=== PATIENT | female | born 1985 | race Caucasian/White ===

== ENCOUNTER 2017-04-24 12:53 | Emergency (ER) | payer BC, OTHER ==
[2017-04-24 13:17] VITALS: TEMP 97.8
[2017-04-24] MEDS ORDERED: KETOROLAC 30 MG/ML 1 ML VIAL IM STA (15:43)
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
[2017-04-24 16:18] LABS: Appearance,Urine Clear (Clear); Bilirubin,Urine Negative (Negative); Glucose,Urine (UA) Negative (Negative); Ketones,Urine Negative (Negative); Leukocyte Esterase,Urine Negative (Negative); Nitrite,Urine Negative (Negative); PH, Urine 6.5 (5.0-8.0); Protein,Urine Negative (Negative); Specific Gravity,Urine 1.005 (1.001-1.035); UA Billing (MACRO vs. MICRO) CHEM; Urobilinogen,Urine <2.0 mg/dL (<2.0)
[2017-04-24 16:22] LABS: Basophils % (A) 0 %; CH 29.9; CHCM 34.4; Eosinophils # (A) 0.1 k/uL (0-0.7); Eosinophils % (A) 1 %; HCT 41.8 % (34.0-46.0); HDW 2.27; HGB 14.9 gm/dL (11.4-16.0); Luc # (Auto) 0.21; Luc % (Auto) 3; Lymphocytes # (A) 1.5 k/uL (1.0-4.8); Lymphocytes % (A) 19 %; MCH 31.1 pg (25.0-35.0); MCHC 35.7 g/dL (31.0-37.0); Mean Platelet Volume 6.6; Monocytes # (A) 0.3 k/uL (0-1.0); Monocytes % (A) 4 %; Neutrophils # (A) 5.8 k/uL (1.3-7.7); Neutrophils % (A) 73 %; RBC 4.81 m/uL (3.80-5.40); RDW 11.9 % (11.5-15.5); WBC 7.9 k/uL (3.8-10.6); WBC (Perox) 8.11
[2017-04-24 16:38] LABS: Anion Gap 13 mmol/L; Blood Urea Nitrogen 15 mg/dL (7-17); Calcium 10.2 mg/dL (8.4-10.2); Carbon Dioxide 24 mmol/L (22-30); Chloride 105 mmol/L (98-107); Glucose 86 mg/dL (74-99); Non-African American GFR(MDRD) >60 (>60 ml/min/1.73 sqM); Potassium 4.3 mmol/L (3.5-5.1); Sodium 142 mmol/L (137-145)
--- NOTE | 2017-04-24 16:52 | XR ---
EXAMINATION TYPE: XR chest 2V DATE OF EXAM: 04/24/2017 COMPARISON: 11/08/2015 HISTORY: Chest pain TECHNIQUE: Frontal and lateral views of the chest are obtained. FINDINGS: Heart and mediastinum are normal. Lungs are clear. Diaphragm is normal. Bony thorax appear s normal. IMPRESSION: Normal chest. No change.
[2017-04-24 17:27] VITALS: BP 107/56; PULSE 69; RESP 20
[2017-04-25] MEDS ORDERED: KETOROLAC 30 MG/ML 1 ML VIAL IVP SCH
== END 2017-04-24 17:26 | disposition home or self-care (01) ==
LOC: EC 12:53
DX: R07.89 Other chest pain (principal); R00.2 Palpitations
CPT/HCPCS: 99285; 96374; 36415; 85379; 80048; 85025; 81003; 81025; 71020; J1885

== ENCOUNTER 2017-11-05 12:32 | Emergency (ER) | payer BC ==
[2017-11-05 13:20] VITALS: TEMP 98.8
--- NOTE | 2017-11-05 13:51 | XR ---
EXAMINATION TYPE: XR chest 2V DATE OF EXAM: 11/05/2017 COMPARISON: 04/24/2017 HISTORY: Chest pain TECHNIQUE: Frontal and lateral views of the chest are obtained. FINDINGS: There is no focal air space opacity. No evidence for pneumothorax. No pleural effusion. The cardiac silhouette size is within normal limits. The osseous structures are grossly intact. IMPRESSION: 1. No acute cardiopulmonary process.
[2017-11-05 13:53] LABS: Basophils % (A) 0 %; Eosinophils # (A) 0.3 k/uL (0-0.7); Eosinophils % (A) 4 %; HCT 41.3 % (34.0-46.0); HGB 13.5 gm/dL (11.4-16.0); Lymphocytes # (A) 1.7 k/uL (1.0-4.8); Lymphocytes % (A) 25 %; MCH 29.2 pg (25.0-35.0); MCHC 32.7 g/dL (31.0-37.0); MCV 89.3 fL (80.0-100.0); Monocytes # (A) 0.4 k/uL (0-1.0); Monocytes % (A) 5 %; Neutrophils # (A) 4.4 k/uL (1.3-7.7); Neutrophils % (A) 63 %; Platelet Count 404 k/uL (150-450); RBC 4.62 m/uL (3.80-5.40); RDW 13.1 % (11.5-15.5)
[2017-11-05 13:58] LABS: ALT 52 U/L (9-52); AST 21 U/L (14-36); Albumin 4.9 g/dL (3.5-5.0); Alkaline Phosphatase 46 U/L (38-126); Anion Gap 12 mmol/L; Blood Urea Nitrogen 12 mg/dL (7-17); Calcium 10.5 mg/dL (8.4-10.2); Carbon Dioxide 27 mmol/L (22-30); Chloride 104 mmol/L (98-107); Glucose 106 mg/dL (74-99); Potassium 5.1 mmol/L (3.5-5.1); Sodium 143 mmol/L (137-145); Total Bilirubin 0.3 mg/dL (0.2-1.3); Total Protein 8.1 g/dL (6.3-8.2)
[2017-11-05] MEDS ORDERED: RX INFO: IV CONTRAST WAS GIVEN 1 EACH MISC MISCELLANE PRN (14:55)
--- NOTE | 2017-11-05 15:00 | ED ---
General Adult HPI - General Chief complaint: Recheck/Abnormal Lab/Rx Stated complaint: Leg Pain-Post Op Oct 27 Time Seen by Provider: 11/05/17 14:41 Source: patient, RN notes reviewed, old records reviewed Mode of arrival: ambulatory Limitations: no limitations - History of Present Illness Initial comments: 32-year-old female presenting with lower abdominal pain and left groin pain. Patient has remote history of superficial venous thrombosis in her right lower extremity. She is concerned that she has developed a left lower extremity DVT status post tubal ligation reversal on October 27. Patient had this surgery in [place]. She has had persistent lower abdominal pain and pelvic pain since the operation. She is also complaining of a sharp pain in her left proximal thigh. This is worse with ambulation. Denies any pain or swelling below the knee in the left lower extremity. Denies any change in bowels. No dysuria. No fever or chills. - Related Data Home Medications Medication Instructions Recorded Confirmed HYDROcodone/APAP 5-325MG [[place] 1 tab PO Q4HR PRN 11/05/17 11/05/17 5-325] Ibuprofen [Motrin] 800 mg PO Q8H PRN 11/05/17 11/05/17 Prochlorperazine [Compazine] 10 mg PO Q6H PRN 11/05/17 11/05/17 Allergies Allergy/AdvReac Type Severity Reaction Status Date / Time No Known Allergies Allergy Verified 11/05/17 15:19 Review of Systems ROS Statement: Those systems with pertinent positive or pertinent negative responses have been documented in the HPI. ROS Other: All systems not noted in ROS Statement are negative. 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, History of Any Multi-Drug Resistant Organisms: None Reported Past Surgical History: Section, Orthopedic Surgery, Tubal Ligation Additional Past Surgical History / Comment(s): tubal reversal Past Psychological History: No Psychological Hx Reported Smoking Status: Never smoker Past Alcohol Use History: Occasional Past Drug Use History: None Reported General Exam Limitations: no limitations General appearance: alert, in no apparent distress Head exam: Present: atraumatic, normocephalic Eye exam: Present: normal appearance, PERRL ENT exam: Present: normal exam Neck exam: Present: normal inspection. Absent: tenderness, meningismus Respiratory exam: Present: normal lung sounds bilaterally. Absent: respiratory distress, wheezes Cardiovascular Exam: Present: regular rate, normal rhythm GI/Abdominal exam: Present: soft, tenderness (Tender left lower quadrant, left inguinal, incision is clean dry and intact.). Absent: distended Extremities exam: Present: normal inspection, normal capillary refill. Absent: pedal edema Back exam: Present: normal inspection, full ROM. Absent: tenderness Neurological exam: Present: alert, oriented X3 Psychiatric exam: Present: normal affect, normal mood Skin exam: Present: warm, dry, intact. Absent: cyanosis, diaphoretic Course Vital Signs 11/05/17 11/05/17 13:14 15:19 Temperature 98.8 F Pulse Rate 74 93 Respiratory 18 18 Rate Blood Pressure 123/72 128/71 O2 Sat by Pulse 98 98 Oximetry Medical Decision Making - Medical Decision Making 32-year-old status post tubal ligation reversal approximately 9 days ago. Presenting with lower abdominal pain and left thigh pain. Concern for DVT. D- dimer is negative, ultrasound negative for DVT and possible pain throughout the left lower extremity. Chest x-ray shows no acute findings per CT is obtained for lower abdominal tenderness, this does show some endometrial thickening, patient is currently on her. Otherwise negative, no abscess no fluid collection. White blood cell count 7.0, hemoglobin stable at 13.5. Patient's pain likely secondary to normal postoperative pain - Lab Data Result diagrams: 11/05/17 13:24 11/05/17 13:24 Lab Results 11/05/17 11/05/17 11/05/17 Range/Units 13:24 13:24 13:24 WBC 7.0 (3.8-10.6) k/uL RBC 4.62 (3.80-5.40) m/uL Hgb 13.5 (11.4-16.0) gm/dL Hct 41.3 (34.0-46.0) % MCV 89.3 (80.0-100.0) fL MCH 29.2 (25.0-35.0) pg MCHC 32.7 (31.0-37.0) g/dL RDW 13.1 (11.5-15.5) % Plt Count 404 (150-450) k/uL Neutrophils % 63 % Lymphocytes % 25 % Monocytes % 5 % Eosinophils % 4 % Basophils % 0 % Neutrophils # 4.4 (1.3-7.7) k/uL Lymphocytes # 1.7 (1.0-4.8) k/uL Monocytes # 0.4 (0-1.0) k/uL Eosinophils # 0.3 (0-0.7) k/uL Basophils # 0.0 (0-0.2) k/uL D-Dimer 0.30 (<0.60) mg/L FEU Sodium 143 (137-145) mmol/L Potassium 5.1 (3.5-5.1) mmol/L Chloride 104 (98-107) mmol/L Carbon Dioxide 27 (22-30) mmol/L Anion Gap 12 mmol/L BUN 12 (7-17) mg/dL Creatinine 0.69 (0.52-1.04) mg/dL Est GFR (MDRD) Af Amer >60 (>60 ml/min/1.73 sqM) Est GFR (MDRD) Non-Af >60 (>60 ml/min/1.73 sqM) Glucose 106 H (74-99) mg/dL Calcium 10.5 H (8.4-10.2) mg/dL Total Bilirubin 0.3 (0.2-1.3) mg/dL AST 21 (14-36) U/L ALT 52 (9-52) U/L Alkaline Phosphatase 46 (38-126) U/L Total Protein 8.1 (6.3-8.2) g/dL Albumin 4.9 (3.5-5.0) g/dL Urine Color Urine Appearance (Clear) Urine pH (5.0-8.0) Ur Specific [place] (1.001-1.035) Urine Protein (Negative) Urine Glucose (UA) (Negative) Urine Ketones (Negative) Urine Blood (Negative) Urine Nitrite (Negative) Urine Bilirubin (Negative) Urine Urobilinogen (<2.0) mg/dL Ur Leukocyte Esterase (Negative) Urine HCG, Qual (Not Detectd) 11/05/17 11/05/17 Range/Units 15:00 15:00 WBC (3.8-10.6) k/uL RBC (3.80-5.40) m/uL Hgb (11.4-16.0) gm/dL Hct (34.0-46.0) % MCV (80.0-100.0) fL MCH (25.0-35.0) pg MCHC (31.0-37.0) g/dL RDW (11.5-15.5) % Plt Count (150-450) k/uL Neutrophils % % Lymphocytes % % Monocytes % % Eosinophils % % Basophils % % Neutrophils # (1.3-7.7) k/uL Lymphocytes # (1.0-4.8) k/uL Monocytes # (0-1.0) k/uL Eosinophils # (0-0.7) k/uL Basophils # (0-0.2) k/uL D-Dimer (<0.60) mg/L FEU Sodium (137-145) mmol/L Potassium (3.5-5.1) mmol/L Chloride (98-107) mmol/L Carbon Dioxide (22-30) mmol/L Anion Gap mmol/L BUN (7-17) mg/dL Creatinine (0.52-1.04) mg/dL Est GFR (MDRD) Af Amer (>60 ml/min/1.73 sqM) Est GFR (MDRD) Non-Af (>60 ml/min/1.73 sqM) Glucose (74-99) mg/dL Calcium (8.4-10.2) mg/dL Total Bilirubin (0.2-1.3) mg/dL AST (14-36) U/L ALT (9-52) U/L Alkaline Phosphatase (38-126) U/L Total Protein (6.3-8.2) g/dL Albumin (3.5-5.0) g/dL Urine Color Light Yellow Urine Appearance Clear (Clear) Urine pH 6.5 (5.0-8.0) Ur Specific [place] 1.006 (1.001-1.035) Urine Protein Negative (Negative) Urine Glucose (UA) Negative (Negative) Urine Ketones Negative (Negative) Urine Blood Negative (Negative) Urine Nitrite Negative (Negative) Urine Bilirubin Negative (Negative) Urine Urobilinogen <2.0 (<2.0) mg/dL Ur Leukocyte Esterase Negative (Negative) Urine HCG, Qual Not Detected (Not Detectd) Disposition Clinical Impression: Post-operative pain Disposition: HOME SELF-CARE Condition: Good Instructions: Abdominal Pain (ED) Referrals: Joshua Gutierrez MD [Primary Care Provider] - 1-2 days Estefania Flood MD [STAFF PHYSICIAN] - 1-2 days Time of Disposition: 16:58
[2017-11-05 15:53] LABS: Appearance,Urine Clear (Clear); Bilirubin,Urine Negative (Negative); Blood,Urine Negative (Negative); Color,Urine Light Yellow; Glucose,Urine (UA) Negative (Negative); Ketones,Urine Negative (Negative); Leukocyte Esterase,Urine Negative (Negative); Nitrite,Urine Negative (Negative); PH, Urine 6.5 (5.0-8.0); Protein,Urine Negative (Negative); Specific Gravity,Urine 1.006 (1.001-1.035); Urobilinogen,Urine <2.0 mg/dL (<2.0)
--- NOTE | 2017-11-05 16:13 | CT ---
EXAMINATION TYPE: CT abdomen pelvis w con DATE OF EXAM: 11/05/2017 COMPARISON: NONE HISTORY: Left lower quadrant ache that travels down left leg. Tubal reversal 1 week ago. History of s uperficial blood clots after tubal. CT DLP: 351.30 mGycm CONTRAST: CT scan of the abdomen and pelvis is performed without Oral Contrast and with IV Contrast, patient in jected with 100 mL of Omnipaque 300. FINDINGS: LUNG BASES-: No visible nodule. No infiltrate. LIVER/GB: No calcified gallstones. No space occupying hepatic lesion. Biliary tree is of normal ca liber. PANCREAS: No inflammation. No distinct mass. SPLEEN: No splenic enlargement. No lesion seen. ADRENALS: No nodule. No thickening. KIDNEYS/BLADDER: No hydronephrosis. No nephrolithiasis. No disctinct renal mass. Urinary bladder g rossly unremarkable. BOWEL: Normal appendix. Normal bowel caliber. No inflammation. GENITAL ORGANS: Moderate endometrial thickening measuring 3.4 cm. No ovarian or adnexal mass. No sherif dence for free fluid. LYMPH NODES: No greater than 1cm abdominal or pelvic lymph nodes are appreciated. AORTA: No significant abnormality. OSSEOUS STRUCTURES: No significant abnormality is seen. OTHER: No significant additional abnormality is seen. IMPRESSION: 1. Endometrial thickening. Otherwise unremarkable study.
--- NOTE | 2017-11-05 16:33 | US ---
EXAMINATION TYPE: US venous doppler duplex LE LT DATE OF EXAM: 11/05/2017 4:19 PM COMPARISON: NONE CLINICAL HISTORY: Pain. SIDE PERFORMED: Left TECHNIQUE: The lower extremity deep venous system is examined utilizing real time linear array sonog sapna with graded compression, doppler sonography and color-flow sonography. VESSELS IMAGED: External Iliac Vein (EIV) Common Femoral Vein Deep Femoral Vein Greater Saphenous Vein * Femoral Vein Popliteal Vein Small Saphenous Vein * Proximal Calf Veins (* superficial vessels) Grayscale, color doppler, spectral doppler imaging performed of the deep veins of the lower extremity . There is normal flow, compressibility, vascular waveforms. Left Leg: Negative for DVT IMPRESSION: No evidence for DVT.
[2017-11-05 17:17] VITALS: BP 127/71; PULSE 80; RESP 17
== END 2017-11-05 17:20 | disposition home or self-care (01) ==
LOC: EC 12:32
DX: G89.18 Other acute postprocedural pain (principal); M79.652 Pain in left thigh; R10.32 Left lower quadrant pain; R10.2 Pelvic and perineal pain; Z86.711 Personal history of pulmonary embolism; Z98.51 Tubal ligation status
CPT/HCPCS: 36415; 85379; 80053; 85025; 81003; 81025; 71046; 93971; 74177; 99284; Q9967

== ENCOUNTER → 2018-06-30 | Outpatient (CLI) | payer BC ==
--- NOTE | 2018-06-30 13:59 | US ---
EXAMINATION TYPE: US transvaginal DATE OF EXAM: 06/30/2018 COMPARISON: NONE CLINICAL HISTORY: 33-year-old female R10.2 Pel pain,R11.0 Nausea,N92.6 Irreg menstruation. Pelvic crate icer mping and pain. 06/30. Tubal ligation 09/29. Tubal reversal 11/05. TECHNIQUE: Transvaginal (TV). Date of LMP: 06/25/18 FINDINGS: EXAM MEASUREMENTS: Uterus: 9.4 x 3.7 x 5.6 cm Endometrial Stripe: 0.8 cm Right Ovary: 3.3 x 1.3 x 1.3 cm Left Ovary: 2.2 x 1.2 x 1.8 cm Both ovaries are normal size. 1. Uterus: Anteverted. 6 mm cervical nabothian cyst 2. Endometrium: appears wnl as visualized 3. Right Ovary: follicles noted 4. Left Ovary: follicles noted 5. Bilateral Adnexa: wnl 6. Posterior cul-de-sac: wnl IMPRESSION: Unremarkable sonographic examination of the pelvis.
== END | disposition home or self-care (01) ==
LOC: RADUSWWP 13:04
PROVIDERS: ATTEND Internal Medicine
DX: N92.6 Irregular menstruation, unspecified (principal); R10.2 Pelvic and perineal pain; R11.0 Nausea
CPT/HCPCS: 76830

== ENCOUNTER → 2018-09-29 | Outpatient (CLI) | payer BC ==
--- NOTE | 2018-09-29 15:55 | FL ---
EXAMINATION TYPE: FL hysterosalpingography DATE OF EXAM: 09/29/2018 COMPARISON: None HISTORY: Reversal tubal ligation TECHNIQUE: The procedure was explained to the patient, the risks complications and benefits. All ques tions were answered. Written and verbal informed consent was obtained. Patient was placed on the fluoroscopy table in the supine view. Speculum was placed. The cervix was l ocalized. Vaginal vault was cleansed with Betadine. Catheter was placed through the cervical os and the balloon inflated. Under fluoroscopic observation 10 mL Omnipaque 180 was administered in retrograde fashion. Overhead prone view was then obtained. Jannette garcia instructions were discussed with the patient. Patient understood the instructions and was rel eased in stable condition having tolerated procedure well. FINDINGS: Uterus appears unremarkable. Fallopian tubes are thin and delicate. There is prompt fill and spill on the left. Some mild additional contrast free spill is noted on the right with visualization of a nor mal-appearing fallopian tube on the right. IMPRESSION: 1. Patent bilateral fallopian tubes with free spill into the pelvis.
== END | disposition home or self-care (01) ==
LOC: RADFLWHC 13:19
PROVIDERS: ATTEND Obstetrics & Gynecology Reproductive Endocrinology
DX: N70.11 Chronic salpingitis (principal)
CPT/HCPCS: 58340; 74740; Q9967

== ENCOUNTER 2018-11-24 16:18 | Emergency (ER) | payer BC ==
[2018-11-24 16:36] VITALS: RESP 18
[2018-11-24] MEDS ORDERED: SODIUM CHLORIDE 0.9% 1,000 ML IV ONE ×2 (17:12)
[2018-11-24 18:09] LABS: Appearance,Urine Clear (Clear); Basophils % (A) 0 %; Bilirubin,Urine Negative (Negative); Blood,Urine Negative (Negative); Color,Urine Light Yellow; Eosinophils # (A) 0.1 k/uL (0-0.7); Eosinophils % (A) 1 %; Glucose,Urine (UA) Negative (Negative); HCT 42.1 % (34.0-46.0); HGB 14.1 gm/dL (11.4-16.0); Ketones,Urine Negative (Negative); Leukocyte Esterase,Urine Negative (Negative); Lymphocytes # (A) 1.2 k/uL (1.0-4.8); Lymphocytes % (A) 8 %; MCH 29.5 pg (25.0-35.0); MCHC 33.6 g/dL (31.0-37.0); MCV 87.7 fL (80.0-100.0); Mean Platelet Volume 6.6; Monocytes # (A) 0.8 k/uL (0-1.0); Monocytes % (A) 5 %; Neutrophils % (A) 84 %; Nitrite,Urine Negative (Negative); PH, Urine 6.5 (5.0-8.0); Platelet Count 259 k/uL (150-450); Protein,Urine Negative (Negative); RBC 4.79 m/uL (3.80-5.40); RDW 12.1 % (11.5-15.5); Specific Gravity,Urine 1.004 (1.001-1.035); Urobilinogen,Urine <2.0 mg/dL (<2.0); WBC 14.3 k/uL (3.8-10.6)
[2018-11-24 18:20] LABS: ALT 26 U/L (9-52); AST 27 U/L (14-36); Albumin 4.9 g/dL (3.5-5.0); Alkaline Phosphatase 59 U/L (38-126); Anion Gap 11 mmol/L; Blood Urea Nitrogen 6 mg/dL (7-17); Calcium 10.1 mg/dL (8.4-10.2); Carbon Dioxide 27 mmol/L (22-30); Chloride 102 mmol/L (98-107); Glucose 99 mg/dL (74-99); Potassium 4.1 mmol/L (3.5-5.1); Sodium 140 mmol/L (137-145); Total Bilirubin 0.4 mg/dL (0.2-1.3); Total Protein 8.4 g/dL (6.3-8.2)
[2018-11-24 18:26] LABS: INR 0.9 (<1.2); Partial Thromboplastin Time 27.3 sec (22.0-30.0); Prothrombin Time 9.8 sec (9.0-12.0)
[2018-11-24 18:36] LABS: HCG,Quantitative Serum <2.4 mIU/mL
[2018-11-24] MEDS ORDERED: ACETAMINOPHEN TAB 500 MG TAB PO STA (18:38)
--- NOTE | 2018-11-24 19:19 | ED ---
Abdominal Pain HPI - General Chief Complaint: Abdominal Pain Stated Complaint: Lower abd pain Time Seen by Provider: 11/24/18 16:55 Source: patient, RN notes reviewed, old records reviewed Mode of arrival: ambulatory Limitations: no limitations - History of Present Illness Initial Comments: Patient is currently receiving treatment for IVF. Patient states that she started to take fertility injections starting last Thursday 3 times a day. She states that today she started to have some left-sided lower abdominal pain and went to her IVF clinic today. She had an ultrasound at that time which she was told she has 15 available eggs. She does have a grade triple scheduled for later on this week. Patient states that the evaluate her for this pain and did not have a significant answer. She called them for repeat questioning her pain today and they told her to come to the emergency department for reevaluation. Patient's infertility doctor is Dr. Ar evans. Patient states she's had normal bowel movements. - Related Data Home Medications Medication Instructions Recorded Confirmed Cetrotide 0.25mg Kit 0.25 unit IM DAILY 11/24/18 11/24/18 Gonal-F Rff 300 Unit Rediject 225 unit IM DAILY 11/24/18 11/24/18 Menopur 75 Unit Vial 150 unit IM DAILY 11/24/18 11/24/18 Drz-Mdqn-Dldfi Acid 1 cap PO DAILY 11/24/18 11/24/18 [-U Capsule (formulary)] Allergies Allergy/AdvReac Type Severity Reaction Status Date / Time No Known Allergies Allergy Verified 11/24/18 16:47 Review of Systems ROS Statement: Those systems with pertinent positive or pertinent negative responses have been documented in the HPI. ROS Other: All systems not noted in ROS Statement are negative. 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 Alert and oriented. Limitations: no limitations General appearance: alert, in no apparent distress Head exam: Present: atraumatic, normocephalic, normal inspection Eye exam: Present: normal appearance, PERRL, EOMI. Absent: scleral icterus, conjunctival injection, periorbital swelling ENT exam: Present: normal exam, mucous membranes moist Neck exam: Present: normal inspection. Absent: tenderness, meningismus, lymphadenopathy Respiratory exam: Present: normal lung sounds bilaterally. Absent: respiratory distress, wheezes, rales, rhonchi, stridor Cardiovascular Exam: Present: regular rate GI/Abdominal exam: Present: soft, tenderness (Left lower quadrant tenderness), normal bowel sounds. Absent: distended, guarding, rebound, rigid External exam: Present: normal external exam Speculum exam: Present: normal speculum exam By manual exam: Present: adnexal tenderness (left). Absent: normal by manual exam Extremities exam: Present: normal inspection, full ROM, normal capillary refill. Absent: tenderness, pedal edema, joint swelling, calf tenderness Back exam: Present: normal inspection Neurological exam: Present: alert, oriented X3, CN II-XII intact Psychiatric exam: Present: normal affect, normal mood Skin exam: Present: warm, dry, intact, normal color. Absent: rash Course Vital Signs 11/24/18 11/24/18 11/24/18 16:32 18:47 20:41 Temperature 98.4 F 98.2 F Pulse Rate 111 H 87 82 Respiratory 18 18 18 Rate Blood Pressure 124/83 108/59 114/64 O2 Sat by Pulse 98 98 97 Oximetry Medical Decision Making - Medical Decision Making Patient is a 33 year old female undergoing IVF treatment, with 2 days of left pelvic pain. LAbs are unremarkable. UA is negative. Patient US shows no ovarian torsion, but she has multiple follicles. Discussed monitoring for weight gain, to access for Hyperovarian stimulation syndrome. She was advised we could do CT scan, but patient wants to avoid radiation. PAtient sees her IVF specialist for egg retreival on Thursday. Discussed Strict return parameters and that pain islikely from ovarian stimulation. - Lab Data Result diagrams: 11/24/18 17:38 11/24/18 17:38 Lab Results 11/24/18 11/24/18 11/24/18 Range/Units 17:38 17:38 17:38 WBC 14.3 H (3.8-10.6) k/uL RBC 4.79 (3.80-5.40) m/uL Hgb 14.1 (11.4-16.0) gm/dL Hct 42.1 (34.0-46.0) % MCV 87.7 (80.0-100.0) fL MCH 29.5 (25.0-35.0) pg MCHC 33.6 (31.0-37.0) g/dL RDW 12.1 (11.5-15.5) % Plt Count 259 (150-450) k/uL Neutrophils % 84 % Lymphocytes % 8 % Monocytes % 5 % Eosinophils % 1 % Basophils % 0 % Neutrophils # 12.0 H (1.3-7.7) k/uL Lymphocytes # 1.2 (1.0-4.8) k/uL Monocytes # 0.8 (0-1.0) k/uL Eosinophils # 0.1 (0-0.7) k/uL Basophils # 0.0 (0-0.2) k/uL PT 9.8 (9.0-12.0) sec INR 0.9 (<1.2) APTT 27.3 (22.0-30.0) sec Sodium 140 (137-145) mmol/L Potassium 4.1 (3.5-5.1) mmol/L Chloride 102 (98-107) mmol/L Carbon Dioxide 27 (22-30) mmol/L Anion Gap 11 mmol/L BUN 6 L (7-17) mg/dL Creatinine 0.62 (0.52-1.04) mg/dL Est GFR (CKD-EPI)AfAm >90 (>60 ml/min/1.73 sqM) Est GFR (CKD-EPI)NonAf >90 (>60 ml/min/1.73 sqM) Glucose 99 (74-99) mg/dL Calcium 10.1 (8.4-10.2) mg/dL Total Bilirubin 0.4 (0.2-1.3) mg/dL AST 27 (14-36) U/L ALT 26 (9-52) U/L Alkaline Phosphatase 59 (38-126) U/L Total Protein 8.4 H (6.3-8.2) g/dL Albumin 4.9 (3.5-5.0) g/dL HCG, Quant <2.4 mIU/mL Urine Color Urine Appearance (Clear) Urine pH (5.0-8.0) Ur Specific [place] (1.001-1.035) Urine Protein (Negative) Urine Glucose (UA) (Negative) Urine Ketones (Negative) Urine Blood (Negative) Urine Nitrite (Negative) Urine Bilirubin (Negative) Urine Urobilinogen (<2.0) mg/dL Ur Leukocyte Esterase (Negative) Influenza Type A RNA (Not Detectd) Influenza Type B (PCR) (Not Detectd) 11/24/18 11/24/18 Range/Units 17:38 17:48 WBC (3.8-10.6) k/uL RBC (3.80-5.40) m/uL Hgb (11.4-16.0) gm/dL Hct (34.0-46.0) % MCV (80.0-100.0) fL MCH (25.0-35.0) pg MCHC (31.0-37.0) g/dL RDW (11.5-15.5) % Plt Count (150-450) k/uL Neutrophils % % Lymphocytes % % Monocytes % % Eosinophils % % Basophils % % Neutrophils # (1.3-7.7) k/uL Lymphocytes # (1.0-4.8) k/uL Monocytes # (0-1.0) k/uL Eosinophils # (0-0.7) k/uL Basophils # (0-0.2) k/uL PT (9.0-12.0) sec INR (<1.2) APTT (22.0-30.0) sec Sodium (137-145) mmol/L Potassium (3.5-5.1) mmol/L Chloride (98-107) mmol/L Carbon Dioxide (22-30) mmol/L Anion Gap mmol/L BUN (7-17) mg/dL Creatinine (0.52-1.04) mg/dL Est GFR (CKD-EPI)AfAm (>60 ml/min/1.73 sqM) Est GFR (CKD-EPI)NonAf (>60 ml/min/1.73 sqM) Glucose (74-99) mg/dL Calcium (8.4-10.2) mg/dL Total Bilirubin (0.2-1.3) mg/dL AST (14-36) U/L ALT (9-52) U/L Alkaline Phosphatase (38-126) U/L Total Protein (6.3-8.2) g/dL Albumin (3.5-5.0) g/dL HCG, Quant mIU/mL Urine Color Light Yellow Urine Appearance Clear (Clear) Urine pH 6.5 (5.0-8.0) Ur Specific [place] 1.004 (1.001-1.035) Urine Protein Negative (Negative) Urine Glucose (UA) Negative (Negative) Urine Ketones Negative (Negative) Urine Blood Negative (Negative) Urine Nitrite Negative (Negative) Urine Bilirubin Negative (Negative) Urine Urobilinogen <2.0 (<2.0) mg/dL Ur Leukocyte Esterase Negative (Negative) Influenza Type A RNA Not Detected (Not Detectd) Influenza Type B (PCR) Not Detected (Not Detectd) Disposition Clinical Impression: Pelvic pain, Ovarian follicular cyst Disposition: HOME SELF-CARE Condition: Good Instructions (If sedation given, give patient instructions): Ovarian Cyst (ED) Additional Instructions: Patient advised to follow-up promptly with urinary infertility specialist. Patient should return to emergency department if any alarming signs or symptoms occur. Is patient prescribed a controlled substance at d/c from ED?: No Referrals: Greg Schwartz MD [Primary Care Provider] - 1-2 days Time of Disposition: 20:32
--- NOTE | 2018-11-24 20:19 | US ---
EXAMINATION TYPE: US transvaginal DATE OF EXAM: 11/24/2018 COMPARISON: NONE CLINICAL HISTORY: Pain. Pain patient doing IVF. TECHNIQUE: Transvaginal (TV). EXAM MEASUREMENTS: Uterus: 9.8 x 5.4 x 6.4 cm Endometrial Stripe: 1.4 cm Right Ovary: 5.2 x 3.2 x 3.2 cm Left Ovary: 3.4 x 2.4 x 2.7 cm 1. Uterus: Anteverted wnl 2. Endometrium: wnl 3. Right Ovary: Multiple follicles seen. 4. Left Ovary: Multiple follicles seen. Spectral, color and waveform doppler imaging shows good arterial and venous flow within the ovaries ; there is no evidence for ovarian torsion. 5. Bilateral Adnexa: wnl 6. Posterior cul-de-sac: wnl IMPRESSION: Normal uterus and endometrium. Numerous follicular cysts on both ovaries. No evidence of ovarian torsion.
[2018-11-24 20:42] VITALS: BP 114/64; PULSE 82; TEMP 98.2
== END 2018-11-24 20:43 | disposition home or self-care (01) ==
LOC: EC 16:18
DX: N83.02 Follicular cyst of left ovary (principal); N83.01 Follicular cyst of right ovary; Z79.890 Hormone replacement therapy; Z98.890 Other specified postprocedural states
CPT/HCPCS: 36415; 76830; 80053; 81003; 84702; 85025; 85610; 85730; 87491; 87502; 87591; 93975; 96360; 96361; 99284

== ENCOUNTER 2019-08-15 16:56 | Outpatient (CLI) | payer BC ==
[2019-08-15 18:03] LABS: Appearance,Urine Clear (Clear); Bilirubin,Urine Negative (Negative); Blood,Urine Negative (Negative); Color,Urine Light Yellow; Glucose,Urine (UA) Negative (Negative); Ketones,Urine Negative (Negative); Leukocyte Esterase,Urine Negative (Negative); Nitrite,Urine Negative (Negative); PH, Urine 6.5 (5.0-8.0); Protein,Urine Negative (Negative); Specific Gravity,Urine 1.008 (1.001-1.035); Urobilinogen,Urine <2.0 mg/dL (<2.0)
[2019-08-15 18:56] VITALS: BP 136/77; PULSE 89; RESP 18; TEMP 98.7
--- NOTE | 2019-08-19 03:50 | P.MSEPDOC ---
Presenting Problems - Arrival Data Date of Arrival on Unit: 08/15/19 Time of Arrival on Unit: 16:55 Mode of Transport: Wheelchair - Complaint OB-Reason for Admission/Chief Complaint: Other Comment: cramping, pressure, itching, nausea, swelling. Medical History - Information : 4 Para: 3 Term: 2 : 1 Abortions: Spontaneous or Elective: 0 Number of Living Children: 3 - Gestational Age Gestational Age by SHEILA (wks/days): 32 Weeks and 3 Days - History Complications: Prior Review of Systems - Review of Systems Constitutional: No problems Breast: No problems ENT: No problems Cardiovascular: No problems Respiratory: No problems Gastrointestinal: No problems Genitourinary: No problems Musculoskeletal: No problems Neurological: No problems Skin: Itching Vital Signs - Temperature Temperature: 98.7 F Temperature Source: Oral - Pulse Right Sitting Brachial Pulse Rate: 89 Pulse Assessment Method: Automatic Cuff - Respirations Respiratory Rate: 18 Oxygen Delivery Method: Room Air O2 Sat by Pulse Oximetry: 98 - Blood Pressure Right Arm Sitting Blood Pressure: 136/77 Blood Pressure Mean: 96 Blood Pressure Source: Automatic Cuff Medical Screen Scoring (Pre) - Cervical Exam Dilation: 0 cm = 0 - Uterine Contractions Frequency: > 5 minutes apart = 1 Duration: > 40 seconds = 2 Intensity: N/A - Maternal Vital Signs Maternal Temperature: N/A Maternal Blood Pressure: N/A Signs of Preeclampsia: N/A Maternal Respirations: N/A - Maternal Trauma Maternal Trauma: N/A - Assessment - Baby A Baseline FHR: 135 Heart Rate - NICHD Category: Category I (Normal) = 0 NST: Reactive Position: N/A Station: N/A - Total Score - Baby A Total Score - Baby A: 3 - Total Score - Baby B Total Score - Baby B: 3 - Total Score - Baby C Total Score - Baby C: 3 - Level of Risk - Baby A Level of Risk - Baby A: Low (0-5) - Level of Risk - Baby B Level of Risk - Baby B: Low (0-5) - Level of Risk - Baby C Level of Risk - Baby C: Low (0-5) - Pain Assessment Pain Location and Character: Abdomen Pain Scale Used: Numeric (1 - 10) Pain Intensity: 4 Pain Management Goal: 3 Pain Description: Cramping Pain Radiation Location: none Pain Frequency: Frequent Pain Duration: 3 Pain Duration Units: Days Pain Behavior: None Exhibited, Vocalization Effects of Pain: none Pain Aggravating Factors: Activity Physician Notification (Pre) - Physician Notified Physician Notified Date: 08/15/19 Physician Notified Time: 18:45 Physician/Practitioner Notifed:: Dr Flood Spoke With: Dr Flood New Order Received: Yes - Notification Comment Comment: UA neg. Cervix closed. BP within normal. Irreg. contractions. Planning fasting labs tomorrow morning in the office for swelling and itching with follow up appt in the office on Thursday with Dr Flood. Disposition - Disposition OB Disposition: Physician follow up in office, Discharge to home Discharge Date: 08/15/19 Discharge Time: 18:50 I agree with the RN Medical Screening Exam: Yes Risk & Benefit of care provided described in d/c instruction: Yes Diagnosis: RELATED CONDITIONS, UNSPECIFIED, THIRD TRIMESTER
== END 2019-08-15 18:57 | disposition home or self-care (01) ==
LOC: FBPOP 16:56
PROVIDERS: ATTEND Obstetrics & Gynecology
DX: O26.93 Pregnancy related conditions, unspecified, third trimester (principal); Z3A.32 32 weeks gestation of pregnancy
CPT/HCPCS: 59025; 81003; 99213

== ENCOUNTER 2019-08-23 09:14 | Observation (INO) | payer BC ==
[2019-08-23 10:10] LABS: Appearance,Urine Cloudy (Clear); Bacteria,Urine Occasional /hpf; Bilirubin,Urine Negative (Negative); Blood,Urine Negative (Negative); Color,Urine Light Yellow; Glucose,Urine (UA) Negative (Negative); Ketones,Urine Negative (Negative); Leukocyte Esterase,Urine Large (Negative); Nitrite,Urine Negative (Negative); PH, Urine 6.5 (5.0-8.0); Protein,Urine Negative (Negative); RBC,Urine 4 /hpf (0-5); Specific Gravity,Urine 1.006 (1.001-1.035); Squamous Epithelial Cell,Urine 2 /hpf (0-4); Urobilinogen,Urine <2.0 mg/dL (<2.0); WBC,Urine 10 /hpf (0-5)
[2019-08-23 10:39] LABS: ALT 32 U/L (9-52); AST 31 U/L (14-36); African American GFR (CKD) >90 (>60 ml/min/1.73 sqM); Blood Urea Nitrogen 9 mg/dL (7-17); LDH 452 U/L (313-618); Non-African American GFR(CKD) >90 (>60 ml/min/1.73 sqM); Uric Acid 8.1 mg/dL (3.7-7.4)
[2019-08-23 10:52] LABS: HCT 34.3 % (34.0-46.0); HGB 11.8 gm/dL (11.4-16.0); MCH 29.7 pg (25.0-35.0); MCHC 34.4 g/dL (31.0-37.0); MCV 86.2 fL (80.0-100.0); Mean Platelet Volume 6.7; Platelet Count 255 k/uL (150-450); RBC 3.98 m/uL (3.80-5.40); RDW 12.7 % (11.5-15.5); WBC 9.8 k/uL (3.8-10.6)
[2019-08-23 11:33] LABS: Band Neutrophils % 1 %; Eosinophils # (M) 0.39 k/uL (0-0.7); Lymphocytes # (M) 1.18 k/uL (1.0-4.8); Monocytes # (M) 0.49 k/uL (0-1.0); Neutrophils % (M) 78 %; Nucleated Red Blood Cells 0 /100 WBC (0-0); Total Cells Counted 100
--- NOTE | 2019-08-23 12:27 | US ---
EXAMINATION TYPE: US OB >= 14 wk fetus DATE OF EXAM: 08/23/2019 COMPARISON: None CLINICAL HISTORY: osvaldo, and efw, High blood pressure with ; TECHNIQUE: Transabdominal (TA) GESTATIONAL AGE / DATING Physician Established: (33 weeks/4 days) EDC: 10/07/2019 Dates by LMP: (33 weeks/4 days) EDC: 10/07/2019 Dates by Current Scan: (33 weeks/3 days) EDC: 10/08/2019 Beta HCG (if available): NA SURVEY IUP: Single PLACENTA: Fundal with portions posteriorly and anteriorly PREVIA: No Previa OSVALDO: 15.0 cm Normal CERVICAL LENGTH (transabdominal: norm > 3.0cm): 3.9 cm Post Void BIOMETRY PRESENTATION: Vertex LIE: Oblique BPD: 8.4 cm 34 weeks / 0 days HC: 30.7 cm 34 weeks / 1 days AC: 29.3 cm 33 weeks / 2 days FL: 6.5 cm 33 weeks / 5 days ESTIMATED WEIGHT IN GRAMS: 2220.0 grams ESTIMATED WEIGHT IN LBS/OZ: 4 lbs. 14 oz. WEIGHT PERCENTAGE BASED ON ESTABLISHED DATES: 41.2% HC/AC: 1.05 Normal FL/AC: 21.32 Normal HEART RATE: 154 bpm RHYTHM: Normal Single, live IUP, 33 weeks/3 days, EDC: 10/08/2019, [id number]; OSVALDO and EFW are wnl. Tech findings reported to patient's RN, Radha Paris. JJ IMPRESSION: Limited survey. Single viable intrauterine corresponding to an ultrasound age of 33 w eeks 3 days with estimated date of delivery 10/08/2019 by today's exam.
[2019-08-23] MEDS: BETAMET ACET-BETAMETH SOD PHOS 6 MG/ML VIAL IM SCH (13:01)
[2019-08-23] MEDS: URSODIOL 300 MG CAP PO SCH ×2 (13:01→18:48)
[2019-08-23 13:15] VITALS: BMI 29.7
--- NOTE | 2019-08-23 15:38 | P.HPOB ---
History of Present Illness H&P Date: 08/23/19 Chief Complaint: Blood pressure 148/90 at home This is a 34-year-old female 4 para 3003 EDC 10/07/2019 at 33-4/7 weeks' gestation. Patient did not fill well last night at approximately 11:30 PM. She took her blood pressure on a wrist monitor and noted to be slightly high. She repeated her blood pressure at her parents house with a stable and on her, and noted to be 148/98. This morning she called the office for instructions, and was told to present to labor and delivery. She states she had floaters in her vision last night, but denies any visual blurring. No epigastric pain. Fetus is been active throughout the . She does complain of peripheral itching, fasting bile acids just returned the level of 13. history is significant for advanced maternal age, and IVF . Blood type is O-, broke and received. An area and chlamydia cultures negative. One-hour Glucola 188, three-hour GTT within normal limits. Thyroid function s tudies within normal limits. HIV testing, urine culture, hepatitis B surface antigen, VDRL testing, Pap smear all negative. Rubella status immune. Social history patient is recently , and re-. She is a nonsmoker. She denies alcohol or drug use. Family history significant for heart disease, stroke, diabetes, gout. ALLERGIES none known. Obstetric history significant for normal spontaneous vaginal delivery 2006, vaginal delivery 2009, section at [facility] in 2011 at 31 weeks gestation, this was secondary to PPE are [place]. Past medical history is significant for asthma, on no medications. Past surgical history tubal ligation performed 2011, reversal 2017. Current medications Synthroid 25 MCG's once daily, vitamin daily. On exam this is a pleasant white female who is 5 foot 0 inches, 152 pounds, initial blood pressure on admission 162/86. She has slight facial bertha on the left, consistent with Lorenzana's palsy sustained several years ago. Chest is clear in all kumar. Abdomen is soft and nontender, is vertex to Prasanna's maneuvers. Extremities reveal no edema. Reflexes are +1. heart rate is consistent with reactive NST. Ultrasound reveals estimated weight 41.2 percentile, vertex presentation, normal amniotic fluid index of 15 cm. Admitting labs include normal liver function studies, slightly elevated uric ac id, bile acid noted slightly elevated at 13, normal CBC. No proteinuria. Impression: 33-4/7 weeks intrauterine , -induced hypertension and cholestasis of recently diagnosed. Advanced maternal age. Plan: Serial blood pressures at this time, most recent 120s over 70s. 24 hour urine collection started. Actigall 300 mg by mouth 3 times a day for cholestasis symptomatology. Betamethasone given, repeat in 12-24 hours. Reevaluation in the morning with further planning to follow. 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, History of Any Multi-Drug Resistant Organisms: None Reported Past Surgical History: Section, Orthopedic Surgery, Tubal Ligation Additional Past Surgical History / Comment(s): tubal reversal Past Anesthesia/Blood Transfusion Reactions: No Reported Reaction Past Psychological History: No Psychological Hx Reported Smoking Status: Never smoker Past Alcohol Use History: None Reported Past Drug Use History: None Reported - Past Family History Mother Family Medical History: No Reported History Medications and Allergies Home Medications Medication Instructions Recorded Confirmed Type Zsb-Pznv-Howzd Acid 1 cap PO DAILY 11/24/18 08/23/19 History [-U Capsule (formulary)] Allergies Allergy/AdvReac Type Severity Reaction Status Date / Time No Known Allergies Allergy Verified 08/23/19 09:40 Exam Vital Signs Temp Pulse Resp BP 08/23/19 13:10 97.5 F L 93 16 162/86 08/23/19 09:32 97.5 F L 93 16 162/86 Intake and Output 08/23/19 08/23/19 08/23/19 06:59 14:59 22:59 Other: Weight 68.946 kg See dictation under HPI please Results Result Diagrams: 08/23/19 09:58 08/23/19 09:58 Abnormal Lab Results - Last 24 Hours (Table) 08/23/19 08/23/19 08/23/19 Range/Units 09:20 09:20 09:58 Uric Acid 8.1 H (3.7-7.4) mg/dL Urine Appearance Cloudy H (Clear) Ur Leukocyte Esterase Large H (Negative) Urine WBC 10 H (0-5) /hpf Urine Bacteria Occasional H (None) /hpf U Random Total Protein 16 H (<12) mg/dL Assessment and Plan Plan: Actigall 300 mg 3 times a day. Betamethasone now, repeat in 12-24 hours. Admit patient for serial blood pressures and monitoring through the evening. Begin 24-hour urine collection. Further assessment and recommendations in the morning. Time with Patient: Greater than 30 (33-4/7 weeks intrauterine , -induced hypertension, mild, cholestasis of )
[2019-08-23] MEDS ORDERED: ACETAMINOPHEN TAB 500 MG TAB PO PRN (16:23)
[2019-08-23] MEDS ORDERED: ZOLPIDEM 10 MG TAB PO PRN (16:24)
[2019-08-23] MEDS ORDERED: ZOLPIDEM 5 MG TAB PO PRN (23:14)
[2019-08-24] MEDS: BETAMET ACET-BETAMETH SOD PHOS 6 MG/ML VIAL IM SCH (07:17)
[2019-08-24] MEDS: URSODIOL 300 MG CAP PO SCH ×3 (07:55→18:00)
--- NOTE | 2019-08-24 07:58 | P.DS ---
Providers Date of admission: 08/23/19 11:03 Expected date of discharge: 08/24/19 Attending physician: Estefania Flood Primary care physician: Stated None Hospital Course: This is a 34-year-old white female 4 para 11/19/2002 EDC 10/07/2019 at 33-5/7 weeks' gestation. Patient presented yesterday with a complaint of elevated blood pressure noted at home, at her parent's house. On admission her blood pressure was 162/86. Patient was admitted for 23 hour monitoring and serial blood pressure checks. She has recently been diagnosed with mild cold Restasis of , fasting bile acids 13, upper limits of normal time. Fetus is been active throughout the . She reported floaters in her vision, but otherwise denies visual changes, right upper quadrant pain, or headache. Please see admitting history and physical for details. Blood pressures have been monitored every 2 hours, and our generally in the 1:30 over 70s to 80s range. This morning patient is feeling well and has no complaints. Reactive NST is noted. Ultrasound was performed and reveals estimated weight in the 40th percentile with normal OSVALDO, vertex presentation. AST, ALTs, platelets all normal. Uric acid slightly elevated. Uterus is soft and nontender, extremities negative for edema, normal reflexes. Betamethasone has been given 2. 24-hour urine collection has been started and will be completed this morning. I will discuss this case with Dr. Perez of maternal- medicine, but anticipate discharge home later this morning. Patient has follow-up appointment scheduled with me tomorrow. She has a sphygomanometer that she is comfortable using, and will bring it to the office with her tomorrow for calibration. She will take her blood pressures at home twice daily and record them. She will call with any headache, visual changes, or right upper quadrant pain, any decreased movement, any blood pressures greater than 150s systolic or 90 diastolic. A prescription for Actigall 300 mg 3 times daily has been called to her local pharmacy. Further recommendations to follow pending consultation with maternal- medicine, consideration for the start of an antihypertensive medication is being given. Patient Condition at Discharge: Good Plan - Discharge Summary New Discharge Prescriptions: No Action Upb-Xxfz-Xmbuh Acid [-U Capsule (formulary)] 1 cap PO DAILY Discharge Medication List Rfy-Goic-Tbhbe Acid [-U Capsule (formulary)] 1 cap PO DAILY 11/24/18 [History] Follow up Appointment(s)/Referral(s): Estefania Flood MD [STAFF PHYSICIAN] - 1-2 Days Discharge Disposition: HOME SELF-CARE
[2019-08-24 09:19] LABS: Basophils # (A) 0.1 k/uL (0-0.2); Basophils % (A) 1 %; Eosinophils % (A) 0 %; HCT 35.1 % (34.0-46.0); HGB 11.9 gm/dL (11.4-16.0); Lymphocytes % (A) 8 %; MCH 29.4 pg (25.0-35.0); MCHC 33.8 g/dL (31.0-37.0); MCV 87.1 fL (80.0-100.0); Mean Platelet Volume 7.4; Monocytes # (A) 0.4 k/uL (0-1.0); Monocytes % (A) 3 %; Neutrophils # (A) 10.5 k/uL (1.3-7.7); Neutrophils % (A) 85 %; Platelet Count 295 k/uL (150-450); RBC 4.03 m/uL (3.80-5.40); WBC 12.3 k/uL (3.8-10.6)
[2019-08-24 09:29] LABS: Uric Acid 7.5 mg/dL (3.7-7.4)
[2019-08-24 11:59] LABS: Total Volume 24 Hour,Urine 2500 mls (800-1800)
[2019-08-24 12:14] LABS: Total Protein 24 Hour,Urine 375 mg/24hr (42.0-225.0)
[2019-08-25 04:26] VITALS: RESP 16; TEMP 97.5
[2019-08-25 05:52] VITALS: PULSE 86
[2019-08-25 05:54] VITALS: BP 159/86
[2019-08-25] MEDS ORDERED: LACTATED RINGERS 1,000 ML IV SCH (07:45)
[2019-08-25] MEDS ORDERED: MAGNESIUM SULFATE GM 6 GM in SODIUM CHLORIDE 0.9% 100 ML IVPB ONE (07:45)
--- NOTE | 2019-08-25 07:54 | P.DS ---
Providers Date of admission: 08/23/19 11:03 Expected date of discharge: 08/25/19 Attending physician: Estefania Flood Primary care physician: Stated None Hospital Course: This is a transfer summary on . This is a 34-year-old white female 4 para 11/19/2002 EDC 10/07/2019 at 34 weeks gestation. Patient presented to labor and delivery 3 days ago with headache and increased blood pressure, blood pressure 162/86 on admission. Labs were drawn, including AST 32, ALTs 31, uric acid 8.1, platelets 255,000. Steroids were given 2. 24 hour urine was instituted, returned with a level of 375 mg protein. Patient was admitted and serial blood pressures were performed every 1-2 hours. Blood pressures stabilized in the 120s to 130s over 70s to 80s range. Symptomatology resolved. Ultrasound was performed, confirming vertex sanchez, 4 lbs. 14 oz. or 2-20 g, 41.2 percentile. Normal OSVALDO was noted of 15 cm. Reactive NST was also noted. On the second hospital day patient looked and felt greatly improved, with blood pressure stabilization. My thought was to discharge the patient home, however I discussed her in detail with Dr. Arturo Perez at [facility], maternal- medicine. His opinion was to continue hospitalization, continue serial blood pressure checks, repeat labs. Therefore discharge was canceled. In addition, patient repeat presented to my office last week with intense itching and fasting bile acids were drawn. They have returned slightly elevated at 13, upper limits of normal 10. Labs were repeated yesterday on 08/24/2019 and actually improved, ALTs 26, AST 26, uric acid down to 7.5. Continued hospitalization was maintained in hopes of continuing the to 35 weeks gestation, when my institution would be capable of accepting the . However, at 5:30 this morning the patient awoke with epigastric pain, had emesis, and blood pressure was noted to be 165/79, repeat 164/84. Decision is made now 2 transfer based on severe preeclampsia criteria. Fetus has been active throughout the . Patient is noted to be lily mildly every 5-7 minutes apart spontaneously. history is significant for blood type O-, broke and received on 03/30/2019. Pap smear, gonorrhea Chlamydia cultures, HIV testing, VDRL, urine culture, hepatitis B surface antigen all negative. One-hour Glucola 188, 3 hour GTT within normal limits. Patient has received a flu shot on 08/17/2019. Past medical history is significant for anemia, hypothyroidism, Lorenzana's palsy. Past surgical history tubal ligation performed 2011, reversal October 2017. Current medications Synthroid 25 MCG's daily, vitamin daily. ALLERGIES none known. Family history significant for heart disease, stroke, diabetes, gout. Obstetric history 2016 normal spontaneous vaginal delivery 7 lbs. 5 oz. male. 2009 normal spontaneous vaginal delivery 7 lbs. 5 oz. female. 2011 section at 31 weeks gestation at [facility] for P PROM, 3 lbs. 4 oz. female . Social history is significant for negative tobacco, negative alcohol or drug use. Patient is . On exam she is a pleasant white female, 5 foot 1 inch, 152 pounds, patient is afebrile. The general physical exam is within normal limits. The left face has a slight droop secondary to a history of Lorenzana's palsy several years ago. The abdomen is obviously gravid, soft, nontender, 35 week size. Infant is vertex, active. Chest is clear in all kumar. Cervix is fingertip dilated, 40% effaced, anterior, soft, -2 station. heart rate is in the 130s with accelerations, decreased variability now with magnesium sulfate infusing. Impression: 34 week intrauterine , severe preeclampsia with underlying mild cholestasis of . Advanced maternal age. History of Lorenzana's palsy with sequela noted. Previous section, low transverse, planning . Plan I discussed this case with Dr. Davis, hospitalist at [facility]. He has accepted maternal transfer. Minor see will not accept 34 week gestation due to prematurity issues. Magnesium sulfate 6 g loading dose is been given, maintenance dose 2 g per hour. Ambulance transfer has been instituted. Patient is aware of the risks benefits and alternatives several plan this morning and is accepting transfer. Patient Condition at Discharge: Fair Plan - Discharge Summary New Discharge Prescriptions: No Action Wpj-Zkwq-Qaxlh Acid [-U Capsule (formulary)] 1 cap PO DAILY Discharge Medication List Jvx-Vucw-Qlnta Acid [-U Capsule (formulary)] 1 cap PO DAILY 11/24/18 [History] Follow up Appointment(s)/Referral(s): Estefania Flood MD [STAFF PHYSICIAN] - 1-2 Days Discharge Disposition: TRANSFER TO SNF/ECF
[2019-08-25] MEDS ORDERED: MAGNESIUM SULFATE-WATER PMX 20 GM in WATER FOR INJECTION 1 500ML.BAG IV SCH (08:00)
== END 2019-08-25 08:45 ==
LOC: FBPOP 09:14 → UNDOADMOB 11:03 → 4FBP 11:03 → UNDODISOB 08-25 08:45
PROVIDERS: ADMIT Obstetrics & Gynecology; ATTEND Obstetrics & Gynecology
DX: O14.13 Severe pre-eclampsia, third trimester (principal); Z3A.33 33 weeks gestation of pregnancy; O13.3 Gestational [pregnancy-induced] hypertension without significant proteinuria, third trimester; O09.813 Supervision of pregnancy resulting from assisted reproductive technology, third trimester; O09.523 Supervision of elderly multigravida, third trimester; O26.613 Liver and biliary tract disorders in pregnancy, third trimester; K83.1 Obstruction of bile duct; O99.283 Endocrine, nutritional and metabolic diseases complicating pregnancy, third trimester; E03.9 Hypothyroidism, unspecified; O26.893 Other specified pregnancy related conditions, third trimester; G51.0 Bell's palsy; O99.513 Diseases of the respiratory system complicating pregnancy, third trimester; D64.9 Anemia, unspecified; J45.909 Unspecified asthma, uncomplicated; Z79.890 Hormone replacement therapy; O34.211 Maternal care for low transverse scar from previous cesarean delivery; Z83.3 Family history of diabetes mellitus; Z82.3 Family history of stroke; Z82.49 Family history of ischemic heart disease and other diseases of the circulatory system; Z84.89 Family history of other specified conditions
CPT/HCPCS: 59025; 99215; 96365; 96372 ×2; 82570; 84156 ×2; 81050; 82565; 83615; 84450 ×2; 84460 ×2; 84520; 84550 ×2; 85025 ×2; 81001; 76805; G0378 ×3; J0702 ×2; J3475 ×2

== ENCOUNTER 2020-06-18 01:00 | Emergency (ER) | payer BC ==
[2020-06-18] MEDS ORDERED: FAMOTIDINE 20 MG TAB PO STA (02:25)
[2020-06-18] MEDS ORDERED: IBUPROFEN 600 MG STARTER PACK 4 TAB BTL PO STA (02:25)
[2020-06-18] MEDS ORDERED: methylPREDNISolone SOD SUCCI 125 MG/2 ML VIAL IM ONE (02:25)
--- NOTE | 2020-06-18 02:28 | ED ---
Skin/Abscess/FB HPI - General Chief complaint: Skin/Abscess/Foreign Body Stated complaint: Bug sting, arm swelling Time Seen by Provider: 06/18/20 01:47 Source: patient, family Mode of arrival: ambulatory Limitations: no limitations - History of Present Illness Initial comments: 35 year-old female patient presents to the emergency department today for ev aluation of right volar forearm swelling. Patient states that earlier in the day she was stung by a wasp. States throughout the day the pain and swelling has extended up to her elbow. States that she has taken Tylenol and Benadryl throughout the day without relief. She denies any rash, lip swelling, tongue swelling, throat swelling. Denies any shortness of breath or wheezing. Patient states she has been stung in the past but has never had this bad of a reaction. She denies fever or chills. Patient denies any recent cough, chest pain, abdominal pain, nausea, vomiting, diarrhea, constipation, back pain, numbness, tingling, dizziness, weakness, hematuria, dysuria, urinary urgency, urinary frequency, headache, visual changes, or any other complaints. - Related Data Home Medications Medication Instructions Recorded Confirmed Non-Qmsp-Uhhzb Acid 1 cap PO DAILY 11/24/18 08/23/19 [-U Capsule (formulary)] Previous Rx's Medication Instructions Recorded Famotidine [Pepcid] 20 mg PO DAILY #3 tablet 06/18/20 Ibuprofen [Motrin] 600 mg PO Q8HR PRN #30 tab 06/18/20 predniSONE 50 mg PO DAILY #3 tab 06/18/20 Allergies Allergy/AdvReac Type Severity Reaction Status Date / Time No Known Allergies Allergy Verified 06/18/20 01:25 Review of Systems ROS Statement: Those systems with pertinent positive or pertinent negative responses have been documented in the HPI. ROS Other: All systems not noted in ROS Statement are negative. 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, History of Any Multi-Drug Resistant Organisms: None Reported Past Surgical History: Section, Orthopedic Surgery, Tonsillectomy, Tubal Ligation Additional Past Surgical History / Comment(s): tubal reversal Past Anesthesia/Blood Transfusion Reactions: No Reported Reaction Past Psychological History: No Psychological Hx Reported Smoking Status: Never smoker Past Alcohol Use History: Occasional Past Drug Use History: None Reported - Past Family History Mother Family Medical History: No Reported History General Exam Limitations: no limitations General appearance: alert, in no apparent distress, other (This is a well- developed, well-nourished adult female patient in no acute distress. Vital signs upon presentation are temperature 97.6F, pulse 67, respirations 12, blood pressure 119/74, pulse ox 98% on room air.) Respiratory exam: Present: normal lung sounds bilaterally. Absent: respiratory distress, wheezes, rales, rhonchi, stridor Cardiovascular Exam: Present: regular rate, normal rhythm, normal heart sounds. Absent: systolic murmur, diastolic murmur, rubs, gallop, clicks GI/Abdominal exam: Present: soft, normal bowel sounds. Absent: distended, tenderness, guarding, rebound, rigid Extremities exam: Present: full ROM, normal capillary refill, other (There is soft tissue swelling and erythema over the volar aspect of the right forearm extending from the wrist to the antecubital fossa. Skin is otherwise pink, warm, dry. Cap refills less than 3 seconds. Radial pulses are 2+ and equal bi laterally.). Absent: normal inspection, tenderness, pedal edema, joint swelling, calf tenderness Neurological exam: Present: alert, oriented X3, CN II-XII intact Psychiatric exam: Present: normal affect, normal mood Skin exam: Present: warm, dry, intact, normal color. Absent: rash Course Vital Signs 06/18/20 06/18/20 01:20 02:43 Temperature 97.6 F 98.2 F Pulse Rate 67 58 L Respiratory 12 17 Rate Blood Pressure 119/74 108/72 O2 Sat by Pulse 98 98 Oximetry Medical Decision Making - Medical Decision Making 35 year-old female patient presents to the emergency department today for evaluation of foot pain and swelling to the right forearm after being stung by a wasp. Physical examination did reveal erythema and soft tissue swelling over the volar aspect of the right forearm extending from the wrist to the antecubital fossa. She is neurovascularly intact. She will be given a dose of steroids and Pepcid here in the emergency department. She is instructed to continue Benadryl every 6 hours. She'll be given a three-day course of prednisone and Pepcid. She is instructed take Tylenol and Motrin for pain control. She is instructed to follow-up with her primary care physician for recheck in 1-2 days. Return parameters were discussed in detail. She verbalizes understanding and agrees with this plan. Disposition Clinical Impression: Bee sting reaction Disposition: HOME SELF-CARE Condition: Good Instructions (If sedation given, give patient instructions): Insect Bite or Sting (ED) Additional Instructions: Apply cool compresses to the swollen area. Take ibuprofen every 6 hours as needed. Take Benadryl every 6 hours as needed. Complete other medications in full. Follow-up with the primary care physician for recheck in 1-2 days. Return to the emergency department immediately for any new, worsening, or concerning symptoms. Prescriptions: Ibuprofen [Motrin] 600 mg PO Q8HR PRN #30 tab PRN Reason: Pain Famotidine [Pepcid] 20 mg PO DAILY #3 tablet predniSONE 50 mg PO DAILY #3 tab Is patient prescribed a controlled substance at d/c from ED?: No Referrals: None,Stated [Primary Care Provider] - 1-2 days Time of Disposition: 02:28
[2020-06-18 02:45] VITALS: BP 108/72; PULSE 58; RESP 17; TEMP 98.2
== END 2020-06-18 02:43 | disposition home or self-care (01) ==
LOC: EC 01:00
DX: T63.441A Toxic effect of venom of bees, accidental (unintentional), initial encounter (principal); M79.89 Other specified soft tissue disorders; G51.0 Bell's palsy
CPT/HCPCS: 96372; 99283

== ENCOUNTER → 2021-01-24 | Outpatient (CLI) | payer BC ==
--- NOTE | 2021-01-25 11:00 | ECHOF ---
Referral Reason:R07.89 Other chest pain MEASUREMENTS -------- HEIGHT: 152.4 cm WEIGHT: 55.3 kg BP: 111/71 RVIDd: 2.8 cm (< 3.3) IVSd: 0.9 cm (0.6 - 1.1) LVIDd: 4.5 cm (3.9 - 5.3) LVPWd: 1.0 cm (0.6 - 1.1) IVSs: 1.2 cm LVIDs: 3.2 cm LVPWs: 1.2 cm LA Diam: 3.0 cm (2.7 - 3.8) Ao Diam: 2.4 cm (2.0 - 3.7) AV Cusp: 1.8 cm (1.5 - 2.6) MV EXCURSION: 14.100 mm (> 18.000) MV EF SLOPE: 98 mm/s (70 - 150) EPSS: 0.9 cm MV E Conor: 0.78 m/s MV DecT: 195 ms MV A Conor: 0.86 m/s MV E/A Ratio: 0.91 FINDINGS -------- Sinus rhythm. This was a technically good study. The left ventricular size is normal. Left ventricular wall thickness is normal. Overall left vent ricular systolic function is low-normal with, an EF between 50 - 55 %. The right ventricle is normal in size. The left atrium is normal in size. The right atrium is normal in size. Interatrial and interventricular septum intact. The aortic valve is trileaflet and appears structurally normal. The tricuspid valve appears structurally normal. Trace/mild (physiologic) pulmonic regurgitation. The aortic root size is normal. Normal inferior vena cava with normal inspiratory collapse consistent with estimated right atrial pre ssure of 5 mmHg. There is no pericardial effusion. CONCLUSIONS -------- 1. The left ventricular size is normal. 2. Left ventricular wall thickness is normal. 3. Overall left ventricular systolic function is low-normal with, an EF between 50 - 55 %. 4. Trace/mild (physiologic) pulmonic regurgitation. 5. There is no pericardial effusion. STOCK BLENDER: Brie Wagoner [facility]
== END | disposition home or self-care (01) ==
LOC: RADECHMAIN 10:34
PROVIDERS: ATTEND Internal Medicine
DX: I37.1 Nonrheumatic pulmonary valve insufficiency (principal)
CPT/HCPCS: 93306

== ENCOUNTER → 2021-02-28 | Outpatient (CLI) | payer BC ==
--- NOTE | 2021-02-28 12:39 | CT ---
EXAMINATION TYPE: CT chest w con DATE OF EXAM: 02/28/2021 COMPARISON: Chest x-ray 02/15/2020, 03/07/2014 HISTORY: chest pain and SOB post covid [address] DLP: 133.6 mGycm Automated exposure control for dose reduction was used. TECHNIQUE: CT scan of the chest is performed with IV Contrast, patient injected with 100 mL of Isovue 300. MIP Images are created on CT scanner and reviewed. 3D reconstructed images are created on an independent workstation and reviewed. FINDINGS: LUNGS: The lungs are grossly clear, there is no concerning parenchymal mass or nodule identified. T here is no pleural effusion or pneumothorax seen. The tracheobronchial tree is patent. MEDIASTINUM: There are no greater than 1 cm hilar or mediastinal lymph nodes. No pericardial effusi on is seen. OTHER: No additional significant abnormality is seen. IMPRESSION:
== END | disposition home or self-care (01) ==
LOC: RADCTMAIN 11:54
PROVIDERS: ATTEND Internal Medicine Critical Care Medicine
DX: R07.9 Chest pain, unspecified (principal); R06.02 Shortness of breath; Z86.16 Personal history of COVID-19
CPT/HCPCS: 71260; Q9967

== ENCOUNTER → 2021-08-13 | Outpatient (CLI) | payer BC ==
[2021-08-13 19:59] LABS: ALT 12 U/L (8-44); AST 15 U/L (13-35); Alkaline Phosphatase 48 U/L (41-126); BUN/Creat Ratio 17.29 Ratio (12.00-20.00); Blood Urea Nitrogen 11.1 mg/dL (9.0-27.0); Carbon Dioxide 23.8 mmol/L (21.6-31.8); Chloride 104 mmol/L (96-109); Globulin 2.5 g/dL (1.6-3.3); Glucose 100 mg/dL (70-110); Non-African American GFR(CKD) 113.9 (60.0-200.0); Potassium 4.6 mmol/L (3.5-5.5); Sodium 139 mmol/L (135-145); Total Protein 7.4 g/dL (6.2-8.2)
[2021-08-13 20:25] LABS: Rheumatoid Factor, Qnt <10 IU/mL (0-15)
[2021-08-13 21:58] LABS: Basophils # (A) 0.02 X 10*3/uL (0.00-0.10); Basophils % (A) 0.4 %; Eosinophils # (A) 0.13 X 10*3/uL (0.04-0.35); Eosinophils % (A) 2.3 %; HCT 40.7 % (37.2-46.3); HGB 13.2 g/dL (12.0-15.0); Lymphocytes # (A) 1.63 X 10*3/uL (0.90-5.00); Lymphocytes % (A) 28.8 %; MCH 29.5 pg (27.0-32.0); MCHC 32.4 g/dL (32.0-37.0); MCV 90.8 fL (80.0-97.0); Mean Platelet Volume 9.2 fL (9.5-12.2); Monocytes # (A) 0.41 X 10*3/uL (0.20-1.00); Monocytes % (A) 7.2 %; Neutrophils # (A) 3.44 X 10*3/uL (1.80-7.70); Neutrophils % (A) 60.8 %; Platelet Count 388 X 10*3/uL (140-440); RBC 4.48 X 10*6/uL (4.10-5.20); RDW 12.1 % (11.5-14.5); WBC 5.66 X 10*3/uL (4.50-10.00)
[2021-08-13 23:01] LABS: Erythrocyte Sedimentation Rate 4 mm/Hr (0-20)
[2021-08-14 12:04] LABS: HLA B27 NEGATIVE
[2021-08-14 17:58] LABS: Centromere Antibody <0.2 AI; Centromere Antibody Interp NEGATIVE (NEGATIVE); Cyclic Citrull Pep IgG Unit <0.5 U/mL; Cyclic Citrullinated Pep IgG NEGATIVE (NEGATIVE); DNA Double-Stranded NEGATIVE (NEGATIVE); Scleroderma SC-70 Ab <0.2 AI
== END | disposition home or self-care (01) ==
LOC: LABWHC1 11:40
PROVIDERS: ATTEND Internal Medicine
DX: M19.90 Unspecified osteoarthritis, unspecified site (principal)
CPT/HCPCS: 36415; 80053; 85025; 85652; 86038; 86200; 86225; 86235; 86431; 86812

== ENCOUNTER → 2021-08-15 | Outpatient (CLI) | payer BC ==
--- NOTE | 2021-08-19 10:28 | MM ---
Reason for exam: screening (asymptomatic). Baseline mammogram. History: Family history of breast cancer in maternal aunt at age 40. Took progesterone for 3 months. Physical Findings: Nurse did not find any significant physical abnormalities on exam. MG 3D Screening Mammo W/Cad Bilateral CC and MLO view(s) were taken. There are scattered fibroglandular densities. No significant finding. ASSESSMENT: Negative, BI-RAD 1 RECOMMENDATION: Routine screening mammogram of both breasts at age 39.
== END | disposition home or self-care (01) ==
LOC: RADMAMWWP 08:15
PROVIDERS: ATTEND Obstetrics & Gynecology
DX: Z12.31 Encounter for screening mammogram for malignant neoplasm of breast (principal); Z80.3 Family history of malignant neoplasm of breast
CPT/HCPCS: 77063; 77067

== ENCOUNTER 2023-08-10 09:13 | Emergency (ER) | payer BC ==
[2023-08-10] MEDS ORDERED: IBUPROFEN 600 MG TAB PO STA (09:39)
--- NOTE | 2023-08-10 09:46 | ED ---
General Adult HPI - General Chief complaint: Extremity Injury, Upper Stated complaint: Right hand injury Time Seen by Provider: 08/10/23 09:32 Source: patient, RN notes reviewed Mode of arrival: ambulatory Limitations: no limitations - History of Present Illness Initial comments: 38-year-old female with no significant past medical history presents the emergency department with a chief complaint of right hand pain. Patient was attempting to her Halloween dictations when she lost her footing off the step and landed on her right hand. She is complaining of right lateral hand pain. She is been icing it at home. She did not take Tylenol or Motrin prior to arrival. Denies numbness, tingling, weakness in the extremity. Denies hitting her head or loss of consciousness. - Related Data Home Medications Medication Instructions Recorded Confirmed Qbr-Wggk-Xmquh Acid 1 cap PO DAILY 11/24/18 08/23/19 [-U Capsule (formulary)] Previous Rx's Medication Instructions Recorded Famotidine [Pepcid] 20 mg PO DAILY #3 tablet 06/18/20 Ibuprofen [Motrin] 600 mg PO Q8HR PRN #30 tab 06/18/20 predniSONE 50 mg PO DAILY #3 tab 06/18/20 HYDROcodone/APAP 5-325MG [Bybee 5] 1 each PO Q6HR PRN #12 tab 08/10/23 Ibuprofen [Motrin] 800 mg PO Q6HR #30 tab 08/10/23 Allergies Allergy/AdvReac Type Severity Reaction Status Date / Time No Known Allergies Allergy Verified 08/10/23 09:28 Review of Systems ROS Statement: Those systems with pertinent positive or pertinent negative responses have been documented in the HPI. ROS Other: All systems not noted in ROS Statement are negative. 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, History of Any Multi-Drug Resistant Organisms: None Reported Past Surgical History: Section, Orthopedic Surgery, Tonsillectomy, Tubal Ligation Additional Past Surgical History / Comment(s): tubal reversal Past Anesthesia/Blood Transfusion Reactions: No Reported Reaction Past Psychological History: No Psychological Hx Reported Smoking Status: Never smoker Past Alcohol Use History: Occasional Past Drug Use History: None Reported - Past Family History Mother Family Medical History: No Reported History General Exam - General Exam Comments Initial Comments: General: Alert, in no acute distress Head: atraumatic normocephalic. Eyes PERRL, EOMI intact, mucous membranes moist Respiratory: Lungs clear to auscultation bilaterally Cardiovascular: Heart rate regular rate and rhythm Abdominal: Soft without guarding or rebound Extremities: Normal inspection with full range of motion and normal capillary refill, edema, ecchymosis to the fourth and fifth metacarpal bones. Marked tenderness. Limited range of motion secondary to pain. Distal neurovascular intact. 2+ radial pulses. Neuroogic: alert and oriented 3, CN II-XII intact, able to ambulate with steady gait Skin: warm dry and intact with normal color Limitations: no limitations Course Vital Signs 08/10/23 08/10/23 09:26 11:02 Temperature 98.2 F 97.9 F Pulse Rate 97 68 Respiratory 20 16 Rate Blood Pressure 137/87 130/78 O2 Sat by Pulse 96 99 Oximetry Procedures - Orthopedic Splinting/Casting Injury #1 Side: right Upper Extremity Injury Location: wrist, hand Upper Extremity Immobilizer: ulnar gutter Lower Extremity Immobilizer: fiberglass cast (Ulnar Gutter ) Medical Decision Making - Medical Decision Making Was pt. sent in by a medical professional or institution (, PA, LAUNDRY WORKER, urgent care, hospital, or longterm...) When possible be specific @ -[No] Did you speak to anyone other than the patient for history (EMS, parent, family, police, friend...)? What history was obtained from this source @ -[No] Did you review nursing and triage notes (agree or disagree)? Why? @ -[I reviewed and agree with nursing and triage notes] Were old charts reviewed (outside hosp., previous admission, EMS record, old EKG, old radiological studies, urgent care reports/EKG's, longterm records)? Report findings @ -[No old charts were reviewed] Differential Diagnosis (chest pain, altered mental status, abdominal pain women, abdominal pain men, vaginal bleeding, weakness, fever, dyspnea, syncope, headache, dizziness, GI bleed, back pain, seizure, CVA, palpatations, mental health, musculoskeletal)? @ -[not applicable] EKG interpreted by me (3pts min.). @ -[As above] X-rays interpreted by me (1pt min.). @ -Yes CT interpreted by me (1pt min.). @ -[None done] U/S interpreted by me (1pt. min.). @ -[None done] What testing was considered but not performed or refused? (CT, X-rays, U/S, labs)? Why? @ -[None] What meds were considered but not given or refused? Why? @ -[None] Did you discuss the management of the patient with other professionals (professionals i.e. , PA, LAUNDRY WORKER, lab, RT, psych nurse, drug abuse social worker, glass sander belt, teacher, bomb squad officer, case investigator)? Give summary @ -[No] Was smoking cessation discussed for >3mins.? @ -[No] Was critical care preformed (if so, how long)? @ -[No] Were there social determinants of health that impacted care today? How? (Homelessness, low income, unemployed, alcoholism, drug addiction, transportation, low edu. Level, literacy, decrease access to med. care, assisted, rehab)? @ -[No] Was there de-escalation of care discussed even if they declined (Discuss DNR or withdrawal of care, Hospice)? DNR status @ -[No] What co-morbidities impacted this encounter? (DM, HTN, Smoking, COPD, CAD, Cancer, CVA, ARF, Chemo, Hep., AIDS, mental health diagnosis, sleep apnea, morbid obesity)? @ -[None] Was patient admitted / discharged? Hospital course, mention meds given and route, prescriptions, significant lab abnormalities, going to OR and other pertinent info. @ -Discharge. This is a 38-year-old female who presents the emergency department with right hand pain. Patient a history and physical exam performed. Physical exam reveals bruising and mild swelling to the right MCP joint. Limited range of motion secondary to pain. Distal neurovascularly intact. Patient had a right hand x-ray reveals a nondisplaced acute fracture of the distal of the fifth metatarsal I discussed the results in detail with the patient verbalized understanding and all questions were addressed. She was placed in ULNAR gutter splint which she tolerated well. Return precautions were discussed at length. Encouraged to follow up with Dr. Zaldivar in 3-5 days. Patient provided Motrin and Bybee prescriptions. Patient discharged in stable condition. Case discussed with Dr. Simmons, ECP agrees with plan of care Undiagnosed new problem with uncertain prognosis? @ -[No] Drug Therapy requiring intensive monitoring for toxicity (Heparin, Nitro, Insulin, Cardizem)? @ -[No] Were any procedures done? @ -[No] Diagnosis/symptom? @ -5th MCP Fracture Acute, or Chronic, or Acute on Chronic? @ -Acute Uncomplicated (without systemic symptoms) or Complicated (systemic symptoms)? @ -Uncomplicated Side effects of treatment? @ -[No] Exacerbation, Progression, or Severe Exacerbation? @ -[No] Poses a threat to life or bodily function? How? (Chest pain, [place], [place], pneumonia, PE, COPD, DKA, ARF, appy, cholecystitis, CVA, Diverticulitis, Homicidal, Suicidal, threat to staff... and all critical care pts) @ -Low likelihood Disposition Clinical Impression: Boxers fracture Disposition: HOME SELF-CARE Condition: Stable Instructions (If sedation given, give patient instructions): Hand Fracture (ED) Additional Instructions: Please remain in the splint until you see orthopedics Please take Tylenol or Motrin for pain Please return to the ER if worsening pain Prescriptions: Ibuprofen [Motrin] 800 mg PO Q6HR #30 tab HYDROcodone/APAP 5-325MG [Bybee 5] 1 each PO Q6HR PRN #12 tab PRN Reason: Pain Is patient prescribed a controlled substance at d/c from ED?: No Referrals: Sumit Tilley MD [Primary Care Provider] - 1-2 days Gilma Zaldivar DO [Doctor of Osteopathic Medicine] - 1-2 days Time of Disposition: 10:40
--- NOTE | 2023-08-10 09:59 | XR ---
EXAMINATION TYPE: XR hand complete RT DATE OF EXAM: 08/10/2023 9:54 AM INDICATION: Patient age:Female; 38 years old; Reason for study: fall; [facility]. COMPARISON: None TECHNIQUE: Frontal, lateral and oblique views of the right hand were obtained. FINDINGS: Nondisplaced acute fracture of the distal metaphysis of the fifth metatarsal is surrounding soft tissue edema. No radiopaque foreign body. IMPRESSION: Nondisplaced acute fracture of the distal metaphysis of the fifth metatarsal.
[2023-08-10 11:05] VITALS: BP 130/78; PULSE 68; RESP 16; TEMP 97.9
== END 2023-08-10 12:13 | disposition home or self-care (01) ==
LOC: EC 09:13
DX: S62.666A Nondisplaced fracture of distal phalanx of right little finger, initial encounter for closed fracture (principal); W19.XXXA Unspecified fall, initial encounter; Y92.009 Unspecified place in unspecified non-institutional (private) residence as the place of occurrence of the external cause
CPT/HCPCS: 29125; 99283

== ENCOUNTER 2024-07-03 13:08 | Emergency (ER) | payer BC ==
--- NOTE | 2024-07-03 13:47 | ED ---
Chest Pain HPI - General Chief Complaint: Chest Pain Stated Complaint: Chest pain Time Seen by Provider: 07/03/24 13:25 Source: patient, RN notes reviewed Mode of arrival: ambulatory Limitations: no limitations - History of Present Illness Initial Comments: 39-year-old female with history of costochondritis from the emergency department chief complaint of anterior left sided chest pain that started this morning. Patient states that she thought this was just a "flareup "for costochondritis however she was concerned that she was experiencing shortness of breath with exertion that is unusual for her. Denies history of DVT, PE. Denies history of hypertension, diabetes, high cholesterol. patient has been under a lot of stress at home and states that the chest pain is worsened with acute stress. pain is reproducible on palpation. has been taking motrin at home with minimal relief. - Related Data Home Medications Medication Instructions Recorded Confirmed [id number] Acid 1 cap PO DAILY 11/24/18 08/23/19 [-U Capsule (formulary)] Previous Rx's Medication Instructions Recorded Famotidine [Pepcid] 20 mg PO DAILY #3 tablet 06/18/20 Ibuprofen [Motrin] 600 mg PO Q8HR PRN #30 tab 06/18/20 predniSONE 50 mg PO DAILY #3 tab 06/18/20 HYDROcodone/APAP 5-325MG [[place] 5] 1 each PO Q6HR PRN #12 tab 08/10/23 Ibuprofen [Motrin] 800 mg PO Q6HR #30 tab 08/10/23 Ketorolac [Toradol] 10 mg PO Q8HR PRN #15 tab 07/03/24 Allergies Allergy/AdvReac Type Severity Reaction Status Date / Time No Known Allergies Allergy Verified 07/03/24 13:16 Review of Systems ROS Statement: Those systems with pertinent positive or pertinent negative responses have been documented in the HPI. ROS Other: All systems not noted in ROS Statement are negative. 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, History of Any Multi-Drug Resistant Organisms: None Reported Past Surgical History: Section, Orthopedic Surgery, Tonsillectomy, T ubal Ligation Additional Past Surgical History / Comment(s): tubal reversal Past Anesthesia/Blood Transfusion Reactions: No Reported Reaction Past Psychological History: No Psychological Hx Reported Smoking Status: Never smoker Past Alcohol Use History: Occasional Past Drug Use History: None Reported - Past Family History Mother Family Medical History: No Reported History General Exam - General Exam Comments Initial Comments: Visual Physical Exam Vital signs reviewed General: Well-appearing, nontoxic, no acute distress. Head: Normocephalic, atraumatic Eyes: PERRLA, EOMI ENT: Airway patent Chest: Nonlabored breathing Skin: No visual rash, normal skin tone Neuro: Alert and oriented 3 Musculoskeletal: No gross abnormalities Limitations: no limitations General appearance: alert, in no apparent distress Head exam: Present: atraumatic, normocephalic, normal inspection Eye exam: Present: normal appearance, PERRL, EOMI. Absent: scleral icterus, conjunctival injection, periorbital swelling Neck exam: Present: normal inspection. Absent: tenderness, meningismus, lymphadenopathy Respiratory exam: Present: normal lung sounds bilaterally. Absent: respiratory distress, wheezes, rales, rhonchi, stridor Cardiovascular Exam: Present: regular rate, normal rhythm, normal heart sounds. Absent: systolic murmur, diastolic murmur, rubs, gallop, clicks GI/Abdominal exam: Present: soft, normal bowel sounds. Absent: distended, tenderness, guarding, rebound, rigid Extremities exam: Present: normal inspection, full ROM, normal capillary refill. Absent: tenderness, pedal edema, joint swelling, calf tenderness Back exam: Present: normal inspection Neurological exam: Present: alert, oriented X3, CN II-XII intact Skin exam: Present: warm, dry, intact, normal color. Absent: rash Course Vital Signs 07/03/24 07/03/24 13:12 17:41 Temperature 98.5 F 98 F Pulse Rate 87 72 Respiratory 16 18 Rate Blood Pressure 125/82 125/75 O2 Sat by Pulse 98 100 Oximetry Chest Pain MDM - MDM Was pt. sent in by a medical professional or institution (, PA, CORRIDOR REDEVELOPMENT MANAGER, urgent care, hospital, or alf...) When possible be specific @ -No Did you speak to anyone other than the patient for history (EMS, parent, family, police, friend...)? What history was obtained from this source @ -No Did you review nursing and triage notes (agree or disagree)? Why? @ -I reviewed and agree with nursing and triage notes Were old charts reviewed (outside hosp., previous admission, EMS record, old EKG, old radiological studies, urgent care reports/EKG's, alf records)? Report findings @ -No old charts were reviewed Differential Diagnosis (chest pain, altered mental status, abdominal pain women, abdominal pain men, vaginal bleeding, weakness, fever, dyspnea, syncope, headache, dizziness, GI bleed, back pain, seizure, CVA, palpatations, mental health, musculoskeletal)? @ -Differential Chest Pain: Stable Angina, Unstable Angina, STEMI, NSTEMI Aortic Dissection, Pneumothorax, Musculoskeletal, Esophageal Spasm GERD, Cholecystitis, Pancreatitis, Zoster, this is not meant to be an all-inclusive list. EKG interpreted by me (3pts min.). @ -Completed at 1530 with a sinus rhythm and a ventricular rate of 72, WI interval 155, QTc 383. No acute signs of ischemia X-rays interpreted by me (1pt min.). @ -chest xray No acute cardiopulmonary process or disease CT interpreted by me (1pt min.). @ -None done U/S interpreted by me (1pt. min.). @ -None done What testing was considered but not performed or refused? (CT, X-rays, U/S, labs)? Why? @ -None What meds were considered but not given or refused? Why? @ -None Did you discuss the management of the patient with other professionals (professionals i.e. , PA, CORRIDOR REDEVELOPMENT MANAGER, lab, RT, psych nurse, administrator social welfare, termite inspector, teacher, navigation officer, spring encaser)? Give summary @ -No Was smoking cessation discussed for >3mins.? @ -No Was critical care preformed (if so, how long)? @ -No Were there social determinants of health that impacted care today? How? (Homelessness, low income, unemployed, alcoholism, drug addiction, transportation, low edu. Level, literacy, decrease access to med. care, long term, rehab)? @ -No Was there de-escalation of care discussed even if they declined (Discuss DNR or withdrawal of care, Hospice)? DNR status @ -No What co-morbidities impacted this encounter? (DM, HTN, Smoking, COPD, CAD, Cancer, CVA, ARF, Chemo, Hep., AIDS, mental health diagnosis, sleep apnea, morbid obesity)? @ -None Was patient admitted / discharged? Hospital course, mention meds given and route, prescriptions, significant lab abnormalities, going to OR and other pertinent info. @ -Discharge. 39-year-old female chest pain. Patient was originally evaluated a quick note where EKG was ordered which revealed sinus rhythm. Additionally she sent for chest x-ray and labs. On my evaluation the patient she is resting comfortably in no signs of acute distress. Vitals are stable. Patient's pain is reproducible on palpation. Cardiopulmonary examination benign with no acute findings. Labs including CBC, CMP coagulation profile and D-dimer, troponin within normal limits. X-ray no acute process. Discussion with patient at bedside if symptoms are likely secondary to costochondritis and potentially exacerbated with anxiety. patient has no significant risk factors that are concerning for further testing at this time, and discssion with patient at bedside possibilty to stay for an obersvation status for further evaluation of chest pain, however she declines at this time and states that she will follow-up outpatient with her primary care provider she has a good relationship with her provider. Recommend that patient follows up with her primary care provider next week for further evaluation. All questions answered at bedside and strict return parameters discussed with the patient she is verbalized understanding. Discussed with Dr. Cameron Undiagnosed new problem with uncertain prognosis? @ -No Drug Therapy requiring intensive monitoring for toxicity (Heparin, Nitro, Insulin, Cardizem)? @ -No Were any procedures done? @ -No Diagnosis/symptom? @ -chest pain, costochondritis Acute, or Chronic, or Acute on Chronic? @ -Acute Uncomplicated (without systemic symptoms) or Complicated (systemic symptoms)? @ -Uncomplicated Side effects of treatment? @ -No Exacerbation, Progression, or Severe Exacerbation? @ -No Poses a threat to life or bodily function? How? (Chest pain, [place], [place], pneumonia, PE, COPD, DKA, ARF, appy, cholecystitis, CVA, Diverticulitis, Homicidal, Suicidal, threat to staff... and all critical care pts) @ -No Disposition Clinical Impression: Costochondral chest pain Disposition: HOME SELF-CARE Condition: Good Instructions (If sedation given, give patient instructions): Costochondritis (ED) Additional Instructions: Return to the emergency department for any new or worsening symptoms. Take prescribed medication as needed for pain relief. Follow-up with your primary care provider for further evaluation Prescriptions: Ketorolac [Toradol] 10 mg PO Q8HR PRN #15 tab PRN Reason: Pain Is patient prescribed a controlled substance at d/c from ED?: No Referrals: Sumit Tilley DO [Primary Care Provider] - 1-2 days Time of Disposition: 17:04
[2024-07-03 14:45] LABS: Basophils % (A) 0 %; Eosinophils # (A) 0.1 k/uL (0-0.7); Eosinophils % (A) 2 %; HGB 13.4 gm/dL (11.4-16.0); Lymphocytes # (A) 1.3 k/uL (1.0-4.8); Lymphocytes % (A) 17 %; MCH 30.4 pg (25.0-35.0); MCHC 33.4 g/dL (31.0-37.0); MCV 91.1 fL (80.0-100.0); Mean Platelet Volume 6.5; Monocytes # (A) 0.4 k/uL (0-1.0); Monocytes % (A) 5 %; Neutrophils # (A) 5.7 k/uL (1.3-7.7); Neutrophils % (A) 74 %; Platelet Count 397 k/uL (150-450); RBC 4.39 m/uL (3.80-5.40); RDW 12.1 % (11.5-15.5); WBC 7.7 k/uL (3.8-10.6)
--- NOTE | 2024-07-03 14:54 | XR ---
EXAMINATION TYPE: XR chest 2V DATE OF EXAM: 07/03/2024 COMPARISON: 11/05/2017 HISTORY: 39-year-old female with chest pain TECHNIQUE: PA and lateral views FINDINGS: The cardiomediastinal silhouette, aorta, and pulmonary vasculature are within normal limits. Lungs an d pleural spaces are clear. IMPRESSION: No acute cardiopulmonary process. [facility], , 07/03/2024 2:52 PM
[2024-07-03 14:56] LABS: ALT 12 U/L (4-34); AST 19 U/L (14-36); African American GFR (CKD) >90 (>60 ml/min/1.73 sqM); Albumin 4.7 g/dL (3.5-5.0); Alkaline Phosphatase 45 U/L (38-126); Anion Gap 11 mmol/L; Blood Urea Nitrogen 10 mg/dL (7-17); Calcium 9.9 mg/dL (8.4-10.2); Carbon Dioxide 24 mmol/L (22-30); Chloride 104 mmol/L (98-107); Glucose 98 mg/dL (74-99); Lipase 89 U/L (23-300); Magnesium 1.8 mg/dL (1.6-2.3); Non-African American GFR(CKD) >90 (>60 ml/min/1.73 sqM); Sodium 139 mmol/L (137-145); Total Bilirubin 0.7 mg/dL (0.2-1.3); Total Protein 7.2 g/dL (6.3-8.2)
[2024-07-03 15:01] LABS: Partial Thromboplastin Time 26.7 sec (22.0-30.0); Prothrombin Time 10.8 sec (10.0-12.5)
[2024-07-03] MEDS: KETOROLAC 15 MG/ML 1 ML VIAL IM STA (17:24)
[2024-07-03 17:42] VITALS: BP 125/75; PULSE 72; RESP 18; TEMP 98
== END 2024-07-03 17:42 | disposition home or self-care (01) ==
LOC: EC 13:08
DX: R07.9 Chest pain, unspecified
CPT/HCPCS: 36415; 71046; 80053; 83690; 83735; 84484; 85025; 85379; 85610; 85730; 93005; 96372; 99285

== ENCOUNTER → 2024-07-06 | Outpatient (CLI) | payer BC ==
--- NOTE | 2024-07-19 08:29 | CT ---
EXAMINATION TYPE: CT chest wo/w con DATE OF EXAM: 07/06/2024 COMPARISON: 02/28/2021 HISTORY: chest pain. hx of osteomylochondritis CT DLP: 338.80 mGycm, Automated exposure control for dose reduction was used. CONTRAST: Performed injected with 90ml mL of Isovue 300. TECHNIQUE: Axial images were obtained at 5 mm thick sections. Reconstructed images are reviewed on charming charlie computer in the coronal plane. FINDINGS: Portion of the thyroid visualized is normal. No suspicious lung nodules or focal infiltrates are present. No enlarged mediastinal or hilar adenopathy is evident. The ascending aorta diameter at the level o f the main pulmonary artery is 2.7 cm. The main pulmonary artery diameter at the bifurcation is 2.[address] sections are obtained through the upper abdomen. Abdomen is essentially unremarkable. Osseous structures appear intact. No suspicious ostiomeatal chondral changes noted. Sternum appears i ntact. IMPRESSION: 1. No suspicious acute change is radiographically apparent. [facility], , 07/19/2024 8:26 AM
== END | disposition home or self-care (01) ==
LOC: RADCTMAIN 08:34
PROVIDERS: ATTEND Internal Medicine
DX: R07.9 Chest pain, unspecified (principal)
CPT/HCPCS: 71270

== ENCOUNTER → 2024-10-26 | Outpatient (CLI) | payer BC ==
--- NOTE | 2024-10-26 10:05 | MM ---
Reason for Exam: Screening (asymptomatic). Last mammogram was performed 3 year(s) and 3 month(s) ago. Patient History: Menarche at age 10. First Full-Term at age 21. Progesterone for 3 months. Maternal aunt had breast cancer, age 40. Risk Values: Edelmira 5 year model risk: 0.5%. NCI Lifetime model risk: 9.9%. Prior Study Comparison: 08/15/2021 Bilateral Screening Mammogram, [facility]. Tissue Density: There are scattered areas of fibroglandular density. Findings: Analyzed By CAD. Right breast: There is no suspicious group of microcalcifications or new suspicious mass. Left breast: There is no suspicious group of microcalcifications or new suspicious mass. Overall Assessment: Negative, BI-RAD 1 Management: Screening Mammogram of both breasts in [address] [facility] will attempt to contact patient to return for supplemental views and ultrasound if indicated. Patient should continue monthly self-breast exams. A clinical breast exam by your physician is recommended on an annual basis. This exam should not preclude additional follow-up of suspicious palpable abnormalities. Note on Edelmira scores and lifetime risk: 1. A Edelmira score greater than 3% is considered moderate risk. If this is the case, consider specialist referral to assess eligibility for a risk reducing agent. 2. If overall lifetime risk for the development of breast cancer is 20% or higher, the patient may qualify for future screening with alternating mammogram and breast MRI. [facility], , 10/26/2024 10:02 AM. Electronically signed and approved by: Roshan Bonilla DO
== END | disposition home or self-care (01) ==
LOC: RADMAMWWP 08:44
PROVIDERS: ATTEND Obstetrics & Gynecology
DX: Z12.31 Encounter for screening mammogram for malignant neoplasm of breast (principal); R92.323 Mammographic fibroglandular density, bilateral breasts; Z80.3 Family history of malignant neoplasm of breast
CPT/HCPCS: 77063; 77067